=== PATIENT | female | born 1990 | race Caucasian/White ===

== ENCOUNTER 2017-01-09 21:15 | Emergency (ER) | payer MEDICAID ==
[~2017-01-09] VITALS: Ht 165.1 cm; Wt 56.7 kg
[~2017-01-09 21:15] MED LIST: AMOXICILLIN875 MG PO; IBUPROFEN600 MG ORAL; KEFLEX500 MG ORAL; NORCO 5-325 TA1 EACH ORAL; QUETIAPINE FUMA25 MG ORAL; ZYPREXA10 MG ORAL
[2017-01-09] MEDS ORDERED: KEPPRA500 M4 ORAL (21:36)
--- NOTE | 2017-01-09 21:37 | Emergency Room Report ---
History of Present Illness General Chief Complaint: To Be Triaged Source: Patient Present Illness HPI Is a 26-year-old female with history of seizure. She said she get him fortunately when she was younger but now infrequently. She was on Keppra but no longer. She's not driving. Tonight she had a witnessed tonic-clonic seizure activity lasting one to 2 minutes. No oral trauma. No incontinence of bowel or urine. No longer postictal period denies any other complaint. Allergies: Coded Allergies: No Known Allergies (Unverified , 06/27/13) Patient History Past Medical History: see triage record, old chart reviewed, seizures, psych hx Past Surgical History: none Pertinent Family History: none Social History: Denies: smoking Last Menstrual Period: 4 days ago Now: No Immunizations: other Reviewed Nursing Documentation: PMH: Agreed, PSxH: Agreed Nursing Documentation-PMH History Of Psychiatric Problem: Yes - BIPOLAR,SCHIZO Hx Cerebrovascular Accident: Yes - Seizure Hx Seizures: Yes Review of Systems Eye: Denies: blurred vision, eye pain ENT: Denies: ear pain, nose congestion, throat swelling Respiratory: Denies: cough, shortness of breath Cardiovascular: Denies: chest pain, palpitations Gastrointestinal: Denies: abdominal pain, diarrhea, nausea, vomiting Musculoskeletal: Denies: back pain, joint pain Skin: Denies: rash Neurological: Denies: headache, numbness Endocrine: Denies: increased thirst, increased urine Hematologic/Lymphatic: Denies: easy bruising All Other Systems: negative except mentioned in HPI Physical Exam Vital Signs Date Time Temp Pulse Resp B/P Pulse Ox O2 Delivery O2 Flow Rate FiO2 01/09/17 20:59 97.3 92 18 109/80 100 Room Air vitals normal Sp02 EP Interpretation: reviewed, normal General Appearance: well appearing, no apparent distress, alert Head: normocephalic, atraumatic Eyes: bilateral eye EOMI, bilateral eye PERRL ENT: hearing grossly normal, normal pharynx Neck: full range of motion, supple, no meningismus Respiratory: chest non-tender, lungs clear, normal breath sounds Cardiovascular #1: regular rate, rhythm, no murmur Gastrointestinal: normal bowel sounds, non tender, no mass, no organomegaly, no bruit, non-distended Musculoskeletal: back normal, gait/station normal, normal range of motion Psychiatric: mood/affect normal Skin: warm/dry Medical Decision Making Diagnostic Impression: Primary Impression: Seizure disorder ER Course Patient with breakthrough seizure secondary to not on medication. Will put her back on her Keppra. No trauma. No prolonged postictal period. patient does not drive so I see no point in doing a DMV report. We'll discharge home. Last Vital Signs Date Time Temp Pulse Resp B/P Pulse Ox O2 Delivery O2 Flow Rate FiO2 01/09/17 20:59 97.3 92 18 109/80 100 Room Air Status: improved Disposition: HOME, SELF-CARE Condition: Stable Scripts Levetiracetam (KEPPRA) 500 Mg Tablet 500 MG ORAL EVERY 12 HOURS, #60 TAB 0 Refills Prov: JURGEN AVELAR M.D. 01/09/17 Additional Instructions: Followup with your [facility]Main in 7 days. You may need a referral to see your neurologist. Return if symptom worsen. JURGEN AVELAR M.D. Jan 09, 2017 21:37
[2017-01-09] MEDS ORDERED: levETIRAcetam 500mg vial IV ONE (21:42)
[2017-01-09] MEDS ORDERED: levETIRAcetam 500 MG in D5W 110 ML IVPB ONE (21:45)
[2017-01-09 21:57] VITALS: BP 116/73
[2017-01-09 22:33] VITALS: BP 116/73
== END 2017-01-09 22:33 | disposition home or self-care (01) ==
LOC: EDBD 21:15 → EMR 22:00
DX: G40.909 Epilepsy, unspecified, not intractable, without status epilepticus (principal); Z86.73 Personal history of transient ischemic attack (TIA), and cerebral infarction without residual deficits; F31.9 Bipolar disorder, unspecified; F20.9 Schizophrenia, unspecified
CPT/HCPCS: 96374; 99283; J1953